=== PATIENT | male | born 1990 | race American Indian/Alaskan Native ===

== ENCOUNTER 2024-07-22 10:15 | Day surgery (SDC) | payer MEDICAID, SELFPAY ==
--- NOTE | 2024-07-21 07:00 | EKG_ITS ---
[facility] (Formerly [facility]) Test Date: 2024-07-21 Pat Name: SHAUN LINO Department: Room: - Gender: Male Mid Level Clinician: : 1990 Requested By: Duc Pagan Order Number: [id number] Reading MD: Duc Pagan Measurements Intervals [place] Rate: 98 P: 21 [place]: 152 QRS: 91 QRSD: 104 T: 24 QT: 359 QTc: 460 Interpretive Statements SINUS RHYTHM BORDERLINE RIGHT AXIS DEVIATION Compared to ECG 03/28/2022 19:29:31 ST (T wave) deviation no longer present /store/S0/[id number]
[2024-07-21 07:39] VITALS: BMI 36.2
[2024-07-21 08:44] LABS: Basophils % (Auto) 0 % (0-2.5); Eosinophils # (Auto) 0.1 Thou/mm3 (0.0-0.5); Eosinophils % (Auto) 1 % (0-10); Hematocrit 46.5 % (41.0-53.0); Hemoglobin 15.8 g/dL (13.5-16.0); Immature Granulocytes % (Auto) 0 % (0-0); Immature Granulocytes Auto 0.03 Thou/mm3 (0.00-0.00); Lymphocytes # (Auto) 2.3 Thou/mm3 (1.0-4.8); Lymphocytes % (Auto) 24 % (10-50); Mean Corpuscular Hemoglobin 28.2 pg (25.0-35.0); Mean Corpuscular Volume 83 fL (80-100); Monocytes # (Auto) 0.6 Thou/mm3 (0.0-0.8); Monocytes % (Auto) 6 % (0-12); Neutrophils # (Auto) 6.4 Thou/mm3 (1.8-7.7); Neutrophils % (Auto) 68 % (37-80); Nucleated Red Blood Cell % 0 /100 WBC (0); Platelet Count 290 Thou/mm3 (140-440); RDW Standard Deviation 39.2 fL (35.1-43.9); Red Blood Count 5.61 Miln/mm3 (4.50-5.90); White Blood Count 9.5 Thou/mm3 (3.8-10.6)
[2024-07-21 09:02] LABS: Alanine Aminotransferase 85 U/L (10-49); Albumin, Serum 5.1 gm/dL (3.5-5.0); Albumin/Globulin Ratio 1.5 (1.2-2.2); Alkaline Phosphatase 147 U/L (46-116); Anion Gap 11 (7-16); Aspartate Amino Transferase 44 U/L (0-34); BUN/Creatinine Ratio 10 Ratio (12-20); Bilirubin,Total 0.5 mg/dL (0.3-1.2); Blood Urea Nitrogen 11 mg/dL (9-23); Calcium 10.2 mg/dL (8.3-10.6); Calcium (Corrected) 10.2 mg/dL (8.5-10.1); Carbon Dioxide 24.6 mMol/L (20.0-31.0); Chloride 101 mMol/L (98-107); Creatinine (Component) 1.1 mg/dL (0.6-1.3); Estimated Creatinine Clearance 145.8 mL/min (>60); Globulin 3.3 gm/dL (2.3-3.5); Glucose 150 mg/dL (74-106); Osmolality,Calculated 276 (275-295); Sodium 137 mMol/L (136-145); Total Protein 8.4 gm/dL (5.7-8.2); eGFR > 60 See Note
[2024-07-22] VITALS (9 sets, daily range): BP systolic 113–154; BP diastolic 75–104; PULSE 74–92; RESP 12–20; TEMP 36.4–36.8; O2SAT 92–96; BMI 36.1
[2024-07-22] MEDS: MIDAZOLAM INJ 1 MG/ML VIAL 2 ML 2 MG IV (11:00)
[2024-07-22] MEDS: RINGERS LACTATED 500 ML 500 ML 20 ML IV (11:00)
[2024-07-22] MEDS: ALBUTEROL RT 2.5 MG/3 ML NEBU INH (11:00)
--- NOTE | 2024-07-22 12:12 | PD.SUROPNT ---
Date of Procedure 07/22/24 Pre Op Diagnosis Symptomatic cholelithiasis Post Op Diagnosis Cholelithiasis with cholecystitis Fatty liver Procedure Laparoscopic cholecystectomy Findings Moderately distended gallbladder with gallstones and chronic cholecystitis. Mildly enlarged liver fatty in appearance Procedure Description Patient was brought into the operating room in supine position. After administration of general endotracheal anesthesia abdomen was prepped and draped in standard surgical manner. A Veress needle was inserted through the umbilicus and pneumoperitoneum was obtained up to 15 mmHg. The Veress needle was then removed, a 5 mm infraumbilical incision was made and the 5mm trocar was inserted. Laparoscopic camera was placed. Under direct visualization a laparoscopic camera a 10 mm trocar was placed in subxiphoid and two 5 mm trocars placed in right upper quadrant. Liver was mildly enlarged and fatty in appearance. The gallbladder was identified and was noted to be moderately distended with gallstones and chronic cholecystitis. It was retracted cephalad and laterally. Dissection started near the infundibulum of gallbladder where cystic duct and gallbladder junction clearly identified. The cystic duct was circumferentially dissected off the peritoneum and surrounding inflammatory tissue. The critical view of safety was clearly demonstrated. Cystic duct was then divided between 2 endoclips proximally and one distally. The cystic artery was similarly dissected and divided. The gallbladder was then from the liver bed using electrocautery. The gallbladder was then placed inside an Endo Catch and removed from the abdomen utilizing subxiphoid trocar site. The area was copiously and thoroughly washed and irrigated, all the fluid was suctioned and the suction fluid returned clear. Hemostasis achieved using electrocautery. Endoclips noted be in place and intact without any bleeding or any leakage. Hemostasis was adequate and satisfactory. The subxiphoid trocar sites fascial defect was closed with 0 Vicryl using Endo Closure device. Instruments and trocars removed, pneumoperitoneum was evacuated and the incisions closed with 4-0 Monocryl in subcuticular fashion. Instrument needle and sponge counts were all reported to be correct X2. Patient tolerated the procedure well, was extubated, breathing spontaneously and without difficulty and was transferred to postanesthesia care in stable condition. Anesthesia GETA and local Pathology / specimen Other (Gallbladder and contents) Estimated Blood Loss 20 Condition Stable Disposition PACU Surgeon Duc Pagan MD Surgical Staff Operation Date: 07/22/24 11:45 Case Staff Anesthesiologist: Vaughn Martínez RN First Assistant: Rafiq Green
--- NOTE | 2024-07-22 12:13 | SUR.PHASEI ---
1213: Pt. AAOx4, vitals stable, breathing unlabored, complaint of pain, will give pain medicine, no complaint of nausea, x4 dressing to ABD CDI, no active bleed noted, report received from MD Martínez and Cecelia PEOPLES.
[2024-07-22] MEDS: fentaNYL CIT INJ 50 mCg/ML AMP 2ML 25 MCG IV ×3 (12:20→12:37)
[2024-07-22] MEDS: ONDANSETRON INJ 2 MG/ML INJ 2 ML 4 MG IV (13:04)
--- NOTE | 2024-07-22 13:09 | SUR.PHASEII ---
1309: Pt. AAOx4, vitals stable, breathing unlabored, no complaint of pain or nausea, x4 dressing to ABD CDI, no active bleed noted, pt. tolerated sips of soda well, pt. ambulated to wheelchair with steady gait and no assist, no complications. Gave discharge instructions to the pt. and his ride, both verbalized understanding and had no further questions. Pt. left with all personal belongings.
== END 2024-07-22 13:09 | disposition home or self-care (01) ==
PROVIDERS: PCP Nurse Practitioner Family; Referring Provider Surgery; Visit Provider Surgery
PROC: 0FT44ZZ Resection of Gallbladder, Percutaneous Endoscopic Approach (ICD-10-PCS; CPT 47562; principal; 2024-07-22 11:45)
DX: K80.10 Calculus of gallbladder with chronic cholecystitis without obstruction (principal); K76.0 Fatty (change of) liver, not elsewhere classified; Z01.810 Encounter for preprocedural cardiovascular examination
CPT/HCPCS: 47562; 36415; 80053; 85025; 85610; 93005; A4217; A4649; J0694; J1100; J2250; J2405; J2704; J3010; J3490; J7120; A9270

== ENCOUNTER 2024-08-10 11:43 | Emergency (ER) | payer MEDICAID, SELFPAY ==
[2024-08-10 12:42] VITALS: PULSE 125; RESP 18; TEMP 36.8; O2SAT 95; BMI 35.5
--- NOTE | 2024-08-10 12:48 | EKG_ITS ---
[facility] Test Date: 2024-08-10 Pat Name: SHAUN LINO Department: Room: - Gender: Male Human Services Case Manager: : 1990 Requested By: Angel Chase Order Number: [id number] Reading MD: Angel Chase Measurements Intervals [place] Rate: 126 P: -3 [place]: 148 QRS: 18 QRSD: 98 T: 2 QT: 313 QTc: 454 Interpretive Statements SINUS TACHYCARDIA POSSIBLE ANTERIOR MYOCARDIAL INFARCTION , OF INDETERMINATE AGE [30 ms Q WAVE IN V3/V4, OR R < 0.2 mV IN V4] Compared to ECG 07/21/2024 08:28:01 Myocardial infarct finding now present Sinus rhythm no longer present /store/S0/[id number]/[id number]
--- NOTE | 2024-08-10 12:48 | XR_ITS ---
Examination: CT abdomen and pelvis without contrast. Coronal 3-D reconstructions. 531 Sagittal 2-D reconstructions. Date and time of exam:August 10, 2024 1314 hrs. Comparison March 09, 2021 Indications: Status post cholecystectomy 3 weeks ago, abdominal pain unable to eat anything 3 days distended abdomen CTDI: vol (mGy): 15.31 DLP: (mGycm): 1197 Technique: Axial images of the abdomen have been obtained, 3 mm slice thickness Intravenous contrast material has not been administered. Low dose protocols were performed. One or more of the following dose reduction techniques were used; automated exposure control, adjustment of the mA and/or KV according to patient size, use of iterative reconstruction technique. Findings: Atelectasis and/or pneumonia at the lung bases The liver appears decreased in size with massive fluid throughout the abdomen Absent gallbladder Spleen is not enlarged No pancreatic mass Bilateral 1 to 3 mm renal calculi, no hydronephrosis or ureteral calculi Aorta normal size No bowel obstruction Urinary bladder intact No prostatomegaly Moderate disc narrowing L5-S1 Impression: Massive fluid throughout the abdomen, consider biliary leak, recommend HIDA scan follow-up
--- NOTE | 2024-08-10 12:53 | PD.EDADULT ---
ED General RME/HPI General Chief complaint: Abdominal Pain Stated complaint: ABDOMINAL PAIN AFTER GALL BLADDER REMOVAL Time Seen by Provider: 08/10/24 12:47 Arrival date/time: 08/10/24 11:43 CC: Abdominal pain abdominal bloating and nausea loss of appetite HPI ongoing for 3 weeks since the patient had a cholecystectomy performed here on July 22. Dr. Pagan the surgeon. Patient states he is also fatigued. At time initial assessment the patient is pale diaphoretic tachycardic and tachypneic. Related Data Home Medications ?Medication ?Instructions ?Recorded ?Confirmed dicyclomine 10 mg capsule 10 mg PO QDAY PRN Abdominal 08/02/18 07/21/24 Discomfort esomeprazole magnesium 40 mg 40 mg PO QDAY 08/02/18 07/21/24 capsule,delayed release (Nexium) lisinopril 10 mg tablet 10 mg PO DAILY 08/02/18 07/21/24 methadone 10 mg/mL oral concentrate 125 mg PO QDAY 12/23/20 07/21/24 albuterol sulfate 90 mcg/actuation 2 puff inhalation Q4HR PRN 03/09/21 07/21/24 aerosol inhaler Shortness Of Breath Or Wheezing cetirizine 10 mg tablet 10 mg PO QDAY 07/21/24 07/21/24 empagliflozin 12.5 mg-metformin ER 2 tab PO QDAY 07/21/24 07/21/24 1,000 mg tablet,extended rel 24 hr (Synjardy XR) insulin glargine 100 unit/mL (3 22 unit subcut HS 07/21/24 07/21/24 mL) subcutaneous pen (Lantus Solostar U-100 Insulin) lorazepam 2 mg tablet 2 mg PO QDAY PRN Anxiety 07/21/24 07/21/24 metoclopramide HCl 5 mg tablet 10 mg PO AC PRN gastroparesis 07/21/24 07/21/24 (Reglan) prazosin 5 mg capsule 5 mg PO QDAY 07/21/24 07/21/24 propranolol 20 mg tablet 20 mg PO QDAY 07/21/24 07/21/24 Previous Rx's ?Medication ?Instructions ?Recorded docusate sodium 100 mg capsule 100 mg PO BID #40 caps 07/22/24 (Colace) hydrocodone 5 mg-acetaminophen 325 1 tab PO Q6H PRN pain (scale score 07/22/24 mg tablet 7-10) #20 tabs ibuprofen 600 mg tablet 600 mg PO Q8H PRN pain (scale 07/22/24 score 4-6) #15 tabs Allergies Allergy/AdvReac Type Severity Reaction Status Date / Time No Known Allergies Allergy Verified 08/10/24 11:48 Review of Systems Review of Systems Narrative Review of Systems: GEN: No fever, no chills, no weight loss EYES: No discharge, no visual changes, no pain HEENT: No ear pain, no congestion, no sore throat PULM: No shortness of breath, no cough, no congestion CV: No chest pain, no dyspnea on exertion, no palpitations GI: + nausea, no vomiting, no diarrhea, + pain, + bloated ,no constipation : No frequency, no urgency, no dysuria MUSC/SKEL: No joint pain, no back pain SKIN: No rash PSYCH: No hallucinations, no depression HEME/LYMPH: No easy bleeding or bruising tendencies NEURO: No weakness, no headache Past Medical History Past Medical History NEUROLOGIC: Positive Neurological Disorders, Migraine and Head Trauma (CONCUSSIONS IN THE PAST); Negative Seizures CARDIAC: Positive Cardiac Disorders (TACHYCARDIA- ON PROPANOLOL), Hypercholesterolemia and Hypertension; Negative Congestive Heart Failure RESPIRATORY: Positive Asthma and Sleep Apnea (CPAP); Negative Chronic Obstructive Pulmonary Disease (COPD) GASTROINTESTINAL: Positive Gastrointestinal Disorders (GASTROPARESIS), Gastrointestinal Bleed, Irritable Bowel, Hiatal Hernia and Gastroesophageal Reflux Disease GENITOURINARY: Positive Kidney Stones; Negative Genitourinary Disorders or Renal Disease MUSCULOSKELETAL: Positive Musculoskeletal Disorders, Degenerative Disk Disease and Fractures (RIGHT HAND FRACTURE AT THIS TIME. REMOVED SPLINT) ENT: Positive Head Trauma (CONCUSSIONS IN THE PAST) ENDOCRINE: Positive Endocrine Disorders and Diabetes Mellitus Type 2; Negative Diabetes Mellitus Type 1 HEMATOLOGIC: Negative Blood Disorders, Sickle Cell Disease or Clotting Problems PSYCHO/SOCIAL: Positive Anxiety (ON MEDS) and Post Traumatic Stress Disorder OTHER HISTORY: Positive Shingles, Anesthesia Reactions (WOKE UP DURING endoscopy) and Chicken Pox; Negative Autoimmune Disease, Falls, Blood Transfusions, MRSA, VRSA, Vancomycin-Resistant Enterococci or Cancer Family History FAMILY HISTORY: Positive Family Cardiac Disorders and Family Gastrointestinal Problems (HTN); Negative Family Anesthesia Reaction Surgical History SURGICAL: Positive Nose Surgery (BONE SPUR) and Abdominal Surgery Social History SMOKING STATUS: Never smoker SUBSTANCE USE: former substance user, marijuana, opiates, painkillers, prescription drug and unknown ED Exam Narrative Physical exam: [General: Pale, diaphoretic, tachycardic, in moderate discomfort but not in any acute distress Head normocephalic HEENT: Within acceptable limits Neck is supple nontender Chest equal chest rise nontender to palpation Respiratory: Tachypneic, clear to auscultation no wheezes crackles or rubs CV: Rate rhythm is regular, tachycardic no murmurs rubs or clicks Abdomen is distended secondary to body habitus firm, laparoscopic surgical sites clean dry and intact with Dermabond still present. No surrounding erythema or edema. Back: No CVA tenderness no spinous process tenderness from cervical spine thoracic and lumbar spine Skin: Ulceration to the right great toe surgical sites as listed above. Otherwise skin is intact no petechiae rash induration ulceration or crepitus Extremities: Moving all extremity against resistance cap refill less than 2 seconds neurosensory intact Neuro: Awake alert oriented x3 Glascow coma 15 no focal deficits] Course Course Course Narrative: Patient's case discussed with Dr. Luu who states there is no availability for HIDA scan or ERCP and even if these were performed GI here does not do biliary stents. Therefore they declined the patient for admission. Will transfer the patient for higher level of GI care Patient's case discussed with Dr. Vera, GI, at [facility] agrees to accept the patient for admission. Quality Measures none Orders Category Date Time Status EKG (ED ONLY) *Do not use* NOW Care 08/10/24 12:48 Completed Saline [Insert IV] NOW Care 08/10/24 12:48 Active Consult to General Surgery Stat Cons 08/10/24 14:52 Ordered Referral - Fund Director Stat Cons 08/10/24 16:[address] abdomen pelvis wo con Stat Exams 08/10/24 12:48 Completed EKG (ED Only) Stat Exams 08/10/24 12:48 Draft B-Type Natriuretic Peptide Stat Lab 08/10/24 12:55 Completed CBC Stat Lab 08/10/24 12:55 Completed Comprehensive Metabolic Panel Stat Lab 08/10/24 12:55 Completed Drug Screen,Urine Stat Lab 08/10/24 12:48 Ordered LDH (Lactate Dehydrogenase) Stat Lab 08/10/24 12:55 Completed Lactic Acid [Lactate (Lactic Acid)] Stat Lab 08/10/24 12:55 Completed Lipase Stat Lab 08/10/24 12:55 Completed Magnesium Stat Lab 08/10/24 12:55 Completed Partial Thromboplastin Time Stat Lab 08/10/24 12:55 Completed Procalcitonin Stat Lab 08/10/24 12:55 Completed Prothrombin Time with INR Stat Lab 08/10/24 12:55 Completed Troponin I Stat Lab 08/10/24 12:55 Completed Type and Screen Stat Lab 08/10/24 12:55 Completed Urinalysis Stat Lab 08/10/24 12:48 Ordered Morphine Inj Med 08/10/24 16:27 Discontinued 4 mg IVP X1 ONE Ondansetron Inj [Zofran Inj] Med 08/10/24 13:00 Discontinued 4 mg IV X1 ONE Piper/Tazo 3.375 gm [Zosyn] Med 08/10/24 22:00 Active 3.375 gm in 50 ml IV Q8HR Piper/Tazo 3.375 gm [Zosyn] Med 08/10/24 15:00 Discontinued 3.375 gm in 50 ml IV X1 Sodium Chloride 0.9% 1000 ml [Ns] 1,000 ml Med 08/10/24 14:52 Active IV 125 mls/hr Sodium Chloride 0.9% 1000 ml [Ns] 1,000 ml Med 08/10/24 12:48 Discontinued IV 999 mls/hr Vital Signs Vital signs: Vital Signs Temperature 98.3 F 08/10/24 12:42 Pulse Rate 125 H 08/10/24 12:42 Respiratory Rate 18 08/10/24 12:42 Pulse Oximetry (%) 95 08/10/24 12:42 Oxygen Delivery Method Room Air 08/10/24 12:[address] [facility] Patient data External records reviewed:: [facility] previous records Clinical information provided by:: patient Social determinants that could affect healthcare access:: none Patient has the following chronic illnesses:: Diabetes hypertension, recent abdominal surgery for cholecystectomy How is presenting disease/condition affected by chronic disease/condition?: exacerbated by Evaluation data The following diagnostics were reviewed and interpreted by me:: lab results, radiology exam(s) and EKG tracing(s) Lab and/or radiology exams considered but not ordered:: EKG performed at 1304 shows a ventricular rate of 126 SC interval 148 QRS of 98 QTc of 388 sinus tachycardia with baseline artifact no significant ST segment elevation or depressions noted. CBC shows a 19,000 leukocytosis no bandemia no significant anemia but there is an elevated platelet count CMP shows no significant electrolyte imbalances there is renal impairment early CKD, elevated T. bili at 1.8 and transaminitis are mildly elevated. CT of the abdomen shows massive fluid ascites and to consider Beriate biliary leak. Interpretation Summary: The patient's case discussed with Dr. Artis, who will consult on this patient the patient to be admitted for first: Paracentesis then HIDA scan, then a GI consult along with a surgical consult. Patient is notified and in agreement with this plan. Medications Medications considered but not ordered:: None Medication administrations:: Medication Administration History Piperacillin/Tazobactam/Dextrose (Zosyn) 3.375 gm in 50 mls @ 12.5 mls/hr IV Q8HR LOC; Protocol Stop: 08/17/24 21:59 Sodium Chloride (Ns) 1,000 mls @ 125 mls/hr IV .Q8H LOC Stop: 09/09/24 14:51 Last Admin: 08/10/24 15:31 Dose: 125 mls/hr Documented By: ED Discontinued Medications Sodium Chloride (Ns) 1,000 mls @ 999 mls/hr IV .Q1H1M ONE Stop: 08/10/24 13:48 Last Infusion: 08/10/24 17:16 Dose: Infused Documented By: Admin: 08/10/24 13:01 Dose: 999 mls/hr Documented By: ED Piperacillin/Tazobactam/Dextrose (Zosyn) 3.375 gm in 50 mls @ 100 mls/hr IV X1 ONE Stop: 08/10/24 15:29 Last Infusion: 08/10/24 17:05 Dose: Infused Documented By: Admin: 08/10/24 15:30 Dose: 100 mls/hr Documented By: ED Morphine Sulfate (Morphine Sulf Inj 10 Mg/Ml Vial) 4 mg IVP X1 ONE Stop: 08/10/24 16:28 Last Admin: 08/10/24 17:04 Dose: 4 mg Documented By: TM Ondansetron HCl (Ondansetron Inj 2 Mg/Ml Inj 2 Ml) 4 mg IV X1 ONE; Protocol Stop: 08/10/24 13:01 Last Admin: 08/10/24 13:02 Dose: 4 mg Documented By: ED None Consultations Consultation(s) initiated? (list below): No Diagnosis Differential Diagnosis ED Complaint MDM: Peritonitis ascites sepsis biliary leak Most likely diagnosis given after review of the tests above:: Peritonitis ascites suspected biliary leak Admission Indicated Admission indicated?: indicated Explain why admission is indicated or not indicated:: Transfer Admission Request Was there a request for admission?: No Disposition Plan Disposition Plan: Transfer Medical Decision Making Differential Diagnosis Differential Diagnosis: Peritonitis ascites sepsis biliary leak Lab Data 08/10/24 12:55 08/10/24 12:55 Labs: Lab Results 08/10/24 Range/Units 12:55 WBC 19.4 H (3.8-10.6) Thou/mm3 RBC 4.66 (4.50-5.90) Miln/mm3 Hgb 12.7 L (13.5-16.0) g/dL Hct 39.2 L (41.0-53.0) % MCV 84 (80-100) fL MCH 27.3 (25.0-35.0) pg MCHC 32.4 (31.0-37.0) g/dl RDW Std Deviation 42.7 (35.1-43.9) fL Plt Count 851 H D (140-440) Thou/mm3 Neut % (Auto) 76 (37-80) % Lymph % (Auto) 12 (10-50) % Floyd % (Auto) 10 (0-12) % Eos % (Auto) 1 (0-10) % Baso % (Auto) 0 (0-2.5) % Neut # (Auto) 14.9 H (1.8-7.7) Thou/mm3 Lymph # (Auto) 2.3 (1.0-4.8) Thou/mm3 Floyd # (Auto) 1.9 H (0.0-0.8) Thou/mm3 Eos # (Auto) 0.2 (0.0-0.5) Thou/mm3 Baso # (Auto) 0.1 (0.0-0.2) Thou/mm3 Immature Gran # (Auto) 0.15 H (0.00-0.00) Thou/mm3 Absolute Nucleated RBC 0.00 (0.00-0.00) Thou/mm3 Immature Gran % 1 H (0-0) % Nucleated RBC % 0 (0) /100 WBC PT 12.2 (9.0-12.2) Seconds INR 1.1 (0.9-1.3) APTT 28.6 (22.0-36.0) Seconds Sodium 130 L (136-145) mMol/L Potassium 5.1 (3.4-5.1) mMol/L Chloride 99 (98-107) mMol/L Carbon Dioxide 20.5 (20.0-31.0) mMol/L Anion Gap 11 (7-16) BUN 27 H (9-23) mg/dL Creatinine 2.0 H (0.6-1.3) mg/dL Estim Creat Clear Calc 79.4 (>60) mL/min eGFR 44 L (60 - ) See Note BUN/Creatinine Ratio 14 (12-20) Ratio Glucose 134 H (74-106) mg/dL Calculated Osmolality 267 L (275-295) Lactic Acid 2.0 (0.4-2.0) mMol/L Calcium 9.4 (8.3-10.6) mg/dL Corrected Calcium 9.4 (8.5-10.1) mg/dL Magnesium 2.5 (1.6-2.6) mg/dL Total Bilirubin 1.8 H (0.3-1.2) mg/dL AST 48 H (0-34) U/L ALT 54 H (10-49) U/L Alkaline Phosphatase 261 H (46-116) U/L Lactate Dehydrogenase 272 H (120-246) U/L Troponin I < 0.002 (0.0-0.045) ng/mL B-Natriuretic Peptide < 20 (0-100) pg/mL Total Protein 8.5 H (5.7-8.2) gm/dL Albumin 4.1 (3.5-5.0) gm/dL Globulin 4.4 H (2.3-3.5) gm/dL Albumin/Globulin Ratio 0.9 L (1.2-2.2) Lipase 29 (12-53) U/L Procalcitonin 0.37 (0.0-0.49) ng/ml Blood Type O Positive Antibody Screen NEGATIVE Blood Bank Wristband ID Yes Discharge Plan Plan Patient Disposition: Other Care w/in Hosp ([facility]C/DIANE) Patient condition on transfer: Stable Prescriptions/Referrals Prescriptions/Med Rec: No Action lisinopril 10 mg tablet 10 mg PO DAILY dicyclomine 10 mg capsule 10 mg PO QDAY PRN (Reason: Abdominal Discomfort) esomeprazole magnesium [Nexium] 40 mg capsule,delayed release(DR/EC) 40 mg PO QDAY albuterol sulfate 90 mcg/actuation HFA aerosol inhaler 2 puff INHALATION Q4HR PRN (Reason: Shortness Of Breath Or Wheezing) Patient Comments: INHALE TWO PUFFS BY MOUTH EVERY 4 TO 6 HOURS NEEDED methadone 10 mg/mL Concentrate 125 mg PO QDAY cetirizine 10 mg tablet 10 mg PO QDAY Patient Comments: TAKE ONE TABLET BY MOUTH EVERY DAY FOR ALLERGY prazosin 5 mg capsule 5 mg PO QDAY Patient Comments: TAKE ONE CAPSULE BY MOUTH EVERY DAY lorazepam 2 mg tablet 2 mg PO QDAY PRN (Reason: Anxiety) Patient Comments: TAKE ONE TABLET BY MOUTH ONCE DAILY NEEDED FOR ANXIETY propranolol 20 mg tablet 20 mg PO QDAY Patient Comments: TAKE ONE TABLET BY MOUTH TWICE DAILY insulin glargine [Lantus Solostar U-100 Insulin] 100 unit/mL (3 mL) insulin pen 22 unit SUBCUT HS Patient Comments: INJECT 10 UNITS SUBCUTANEOUSLY EVERY EVENING FOR DIABETES Synjardy XR 12.5-1,000 mg tablet, IR - ER, biphasic 24hr 2 tab PO QDAY Patient Comments: TAKE TWO TABLETS BY MOUTH EVERY MORNING WITH FOOD FOR DIABETES metoclopramide HCl [Reglan] 5 mg tablet 10 mg PO AC PRN (Reason: gastroparesis) docusate sodium [Colace] 100 mg capsule 100 mg PO BID Qty: 40 0RF hydrocodone-acetaminophen 5-325 mg tablet 1 tab PO Q6H MDD 4 PRN (Reason: pain (scale score 7-10)) Qty: 20 0RF ibuprofen 600 mg tablet 600 mg PO Q8H PRN (Reason: pain (scale score 4-6)) Qty: 15 0RF Referrals: Rolf([facility]),GONSALO Chavira [Primary Care Provider] - In 1 week Problem List Clinical Impression: Elevated bilirubin, Abdominal distension, Peritonitis, Abdominal ascites Patient/Caregiver Discharge Instructions Print Language: Tajik Stand Alone Forms: Aleshia Award Info., Patient Portal Info Letter PA/PULP MAKING PLANT OPERATOR Supervising Physician ARABELLA/PULP MAKING [employer]ANT OPERATOR Supervising Physician: Angel Gama ENP
[2024-08-10] MEDS: SODIUM CHLORIDE 0.9% 1000 ML 1,000 ML 999 ML IV (13:01)
[2024-08-10 13:02] VITALS: BP 145/80; PULSE 125; RESP 22; TEMP 36.4; O2SAT 95
[2024-08-10] MEDS: ONDANSETRON INJ 2 MG/ML INJ 2 ML 4 MG IV (13:02)
--- NOTE | 2024-08-10 13:09 | PC.NURSE ---
Pt arrives from home w/abdominal pain, had surgery 3 weeks ago, feels more lethargic, having lower abdominal pain, appears pale, family at bedside attentive to pt.
[2024-08-10 13:17] LABS: Basophils # (Auto) 0.1 Thou/mm3 (0.0-0.2); Basophils % (Auto) 0 % (0-2.5); Eosinophils # (Auto) 0.2 Thou/mm3 (0.0-0.5); Eosinophils % (Auto) 1 % (0-10); Hematocrit 39.2 % (41.0-53.0); Hemoglobin 12.7 g/dL (13.5-16.0); Immature Granulocytes % (Auto) 1 % (0-0); Immature Granulocytes Auto 0.15 Thou/mm3 (0.00-0.00); Lymphocytes # (Auto) 2.3 Thou/mm3 (1.0-4.8); Lymphocytes % (Auto) 12 % (10-50); Mean Corpuscular HGB Conc 32.4 g/dl (31.0-37.0); Mean Corpuscular Hemoglobin 27.3 pg (25.0-35.0); Mean Corpuscular Volume 84 fL (80-100); Monocytes # (Auto) 1.9 Thou/mm3 (0.0-0.8); Monocytes % (Auto) 10 % (0-12); Neutrophils # (Auto) 14.9 Thou/mm3 (1.8-7.7); Neutrophils % (Auto) 76 % (37-80); Nucleated Red Blood Cell % 0 /100 WBC (0); Platelet Count 851 Thou/mm3 (140-440); RDW Standard Deviation 42.7 fL (35.1-43.9); Red Blood Count 4.66 Miln/mm3 (4.50-5.90); White Blood Count 19.4 Thou/mm3 (3.8-10.6)
[2024-08-10 13:24] LABS: INR 1.1 (0.9-1.3); Partial Thromboplastin Time 28.6 Seconds (22.0-36.0); Prothrombin Time 12.2 Seconds (9.0-12.2)
[2024-08-10 13:31] LABS: Alanine Aminotransferase 54 U/L (10-49); Albumin, Serum 4.1 gm/dL (3.5-5.0); Albumin/Globulin Ratio 0.9 (1.2-2.2); Alkaline Phosphatase 261 U/L (46-116); Anion Gap 11 (7-16); Aspartate Amino Transferase 48 U/L (0-34); BUN/Creatinine Ratio 14 Ratio (12-20); Bilirubin,Total 1.8 mg/dL (0.3-1.2); Blood Urea Nitrogen 27 mg/dL (9-23); Calcium 9.4 mg/dL (8.3-10.6); Calcium (Corrected) 9.4 mg/dL (8.5-10.1); Carbon Dioxide 20.5 mMol/L (20.0-31.0); Chloride 99 mMol/L (98-107); Estimated Creatinine Clearance 79.4 mL/min (>60); Globulin 4.4 gm/dL (2.3-3.5); Glucose 134 mg/dL (74-106); LDH (Lactate Dehydrogenase) 272 U/L (120-246); Lipase 29 U/L (12-53); Magnesium 2.5 mg/dL (1.6-2.6); Osmolality,Calculated 267 (275-295); Potassium 5.1 mMol/L (3.4-5.1); Procalcitonin 0.37 ng/ml (0.0-0.49); Sodium 130 mMol/L (136-145); Total Protein 8.5 gm/dL (5.7-8.2); Troponin I < 0.002 ng/mL (0.0-0.045); eGFR 44 See Note
[2024-08-10 13:47] LABS: B-Type Natriuretic Peptide < 20 pg/mL (0-100)
[2024-08-10 14:42] VITALS: BP 115/83; PULSE 113; RESP 18; TEMP 36.4; O2SAT 92
[2024-08-10] MEDS: PIPER/TAZO 3.375 GM 3.375 GM/50 ML BAG IV (15:30)
[2024-08-10] MEDS: SODIUM CHLORIDE 0.9% 1000 ML 1,000 ML 125 ML IV (15:31)
[2024-08-10 16:00] VITALS: BP 125/77; PULSE 115; RESP 29; TEMP 36.7; O2SAT 92
--- NOTE | 2024-08-10 16:51 | PC.CM ---
Addendum entered by Zabrina Palomares RN 08/10/24 18:28: I set up transport for 1929. I reported off to Betty charge nurse. Packet with CD left with ED charge. I called Shanita at [facility] and let gave her the strip picker time. Addendum entered by Zabrina Palomares RN 08/10/24 17:31: I received a call back from Shanita at [facility]. she states patient has been accepted by Dr. Vera ED to ED. Number to call and give report is [phone]. Original Note: 161 I received a referral to transfer patient for biliary peritonitis needing ERCP and billiary stent. I initiated a transfer with [facility]. I made a CD and started packet.
[2024-08-10] MEDS: MORPHINE SULF INJ 10 MG/ML VIAL 4 MG IVP (17:04)
[2024-08-10 18:00] VITALS: BP 113/79; PULSE 120; RESP 18; TEMP 36.8; O2SAT 97
[2024-08-10 18:51] LABS: Collection Type, Urine Clean Catch
[2024-08-10 19:01] LABS: Bilirubin,Urine 1+ (Negative); Blood,Urine Negative (Negative); Clarity,Urine Turbid (Clear/Hazy); Color,Urine Drk-Yellow (Lt Yel-Yel); Glucose, Urine 3+ (Negative); Hyaline Casts,Urine < 1 /hpf (0-1); Ketones,Urine Negative (Negative); Leukocyte Esterase,Urine Positive (Negative); Nitrite,Urine Negative (Negative); Protein,Urine 1+ (Neg - Trace); RBC,Urine 2 /hpf (0-3); Specific Gravity,Urine 1.021 (1.001-1.035); Squamous Epithelial Cell,Urine 1 /hpf (0-5); WBC,Urine 27 /hpf (0-5)
[2024-08-10 19:16] LABS: Amphetamine/Methamp Scrn,U Negative (Negative); Barbiturate Screen,Urine Negative (Negative); Benzodiazepines Screen,Urine Negative (Negative); Benzoylecgonine Screen, Ur Negative (Negative); Fentanyl Screen,Urine Negative (Negative); Opiate Screen,Urine Positive (Negative); THC Screen,Urine Negative (Negative)
== END 2024-08-10 18:50 | disposition short-term general hospital (02) ==
PROVIDERS: Registered Nurse General Practice; Emergency Provider Emergency Medicine; PCP Nurse Practitioner Family
DX: K65.9 Peritonitis, unspecified (principal); R18.8 Other ascites; R00.0 Tachycardia, unspecified; E80.7 Disorder of bilirubin metabolism, unspecified; I10 Essential (primary) hypertension; E78.00 Pure hypercholesterolemia, unspecified; Z75.1 Person awaiting admission to adequate facility elsewhere
CPT/HCPCS: 36415; 74176; 80053; 80307; 81001; 83605; 83615; 83690; 83735; 83880; 84145; 84484; 85025; 85610; 85730; 86850; 86900; 86901; 93005; 96361; 96365; 96366; 96375; 99285; J2270; J2405; J2543; J7030

== ENCOUNTER → 2024-11-11 | Outpatient (CLI) | payer MEDICAID, SELFPAY | END | disposition home or self-care (01) | PROVIDERS: PCP Nurse Practitioner Family; Referring Provider Nurse Practitioner Family; Visit Provider Student in an Organized Health Care Education/Training Program | DX: L97.512 Non-pressure chronic ulcer of other part of right foot with fat layer exposed (principal); E11.40 Type 2 diabetes mellitus with diabetic neuropathy, unspecified; I49.9 Cardiac arrhythmia, unspecified; N18.6 End stage renal disease; J45.909 Unspecified asthma, uncomplicated; G47.30 Sleep apnea, unspecified; Z79.84 Long term (current) use of oral hypoglycemic drugs | CPT/HCPCS: 99215; A9270; G0463 ==